=== PATIENT | female | born 1960 | race Caucasian/White ===

== ENCOUNTER 2023-12-22 08:42 | Emergency (ER) | payer OTHER, MEDICAID, SELFPAY ==
--- NOTE | 2023-12-22 09:29 | DI.RAD.S_ITS ---
PROCEDURE: XR FOOT RT MIN 3V INDICATIONS: injury TECHNIQUE: 3 views of the foot were acquired. COMPARISON: None. FINDINGS: Bones: No fractures or dislocations. No suspicious bony lesions. Soft tissues: No tibiotalar joint effusion. Achilles tendon appears normal. IMPRESSION: No visualized acute fracture or dislocation. However, if clinical concern and/or pain persist, short interval imaging followup in 7-10 days is recommended, as occult injury cannot be definitively excluded. Dictated by: Verónica Knight M.D. on 12/22/2023 at 10:40 Approved by: Verónica Knight M.D. on 12/22/2023 at 10:41
--- NOTE | 2023-12-22 09:29 | DI.RAD.S_ITS ---
PROCEDURE: XR ANKLE RT MIN 3V INDICATIONS: injury TECHNIQUE: 3 views of the ankle were acquired. COMPARISON: [facility], CR, XR FOOT RT MIN 3V, 12/22/2023, 9:30. FINDINGS: Bones: Questionable deformity anterior callus. Ankle mortise is normally aligned. No suspicious bony lesions. Soft tissues: No tibiotalar joint effusion. Achilles tendon appears normal. IMPRESSION: Questionable deformity of the anterior talus. Fracture cannot be excluded. Recommend correlation point tenderness as well as dedicated calcaneal views. Dictated by: Verónica Knight M.D. on 12/22/2023 at 10:42 Approved by: Verónica Knight M.D. on 12/22/2023 at 10:43
[2023-12-22 09:30] VITALS: BP 152/96; PULSE 101; RESP 16; TEMP 36.6; O2SAT 95; BMI 22.3
--- NOTE | 2023-12-22 11:34 | DI.RAD.S_ITS ---
PROCEDURE: XR CALCANEOUS RT MIN 2V INDICATIONS: injury, ?talus fx TECHNIQUE: Two views of the calcaneus were acquired. COMPARISON: None. FINDINGS: Bones: There is persistent slight irregularity of the anterior calcaneus. No height loss. Soft tissues: No suspicious calcifications. Achilles tendon appears normal. IMPRESSION: Persistent slight irregularity the anterior calcaneus. Cannot exclude nondisplaced fracture. Follow-up imaging in 7-10 days is recommended. Dictated by: Verónica Knight M.D. on 12/22/2023 at 12:49 Approved by: Verónica Knight M.D. on 12/22/2023 at 12:50
--- NOTE | 2023-12-22 12:17 | ED_ITS ---
HPI - Extremity Injury (Lower) <Leonardo Cortez PA-C - Last Filed: 12/22/23 15:45> General Chief Complaint: Extremity Injury, Lower Stated Complaint: twisted R ankle/foot Time Seen by Provider: 12/22/23 11:27 Source: patient Mode of arrival: EMS History of Present Illness HPI Narrative: 63-year-old female presents to the ED with 5 days of right foot pain. Patient states that she hit her foot against a concrete slab when her dog tag that the leash. Patient states that it has been swollen, painful, red. No numbness, tingling, weakness. Patient states that she is unable to bear weight and walk due to the pain. No fever, chills. Related Data Allergies Allergy/AdvReac Type Severity Reaction Status Date / Time Penicillins Allergy Hives Verified 12/22/23 09:33 aspirin AdvReac Heartburn Verified 12/22/23 09:33 codeine AdvReac Verified 12/22/23 09:33 Review of Systems <Leonardo Cortez PA-C - Last Filed: 12/22/23 15:45> Constitutional Constitutional: Denies chills, Denies fatigue, Denies fever(s), Denies frequent falls, Denies lethargy and Denies weakness Eyes Eyes: Denies change in vision, Denies eye discharge, Denies irritation and Denies loss of vision ENT Ears, Nose, Mouth, and Throat: Denies change in voice, Denies dizziness, Denies neck pain, Denies sore throat and Denies throat swelling Cardiovascular Cardiovascular: Denies chest pain, Denies irregular heart rhythm, Denies lightheadedness, Denies palpitations, Denies dyspnea, Denies dyspnea on exertion and Denies orthopnea Respiratory Respiratory: Denies cough, Denies dyspnea, Denies dyspnea on exertion and Denies wheezing Gastrointestinal Gastrointestinal: Denies abdominal pain, Denies change in bowel habits, Denies diarrhea, Denies nausea and Denies vomiting Musculoskeletal Musculoskeletal: Denies neck pain and Denies numbness Comments: Right foot swelling, pain, redness Integumentary/Breasts Skin/Breast: Denies pruritus, Denies erythema, Denies rash and Denies wounds Neurologic Neurologic: Denies behavioral changes, Denies confusion, Denies dizziness, Denies frequent falls, Denies loss of vision, Denies numbness and Denies weakness Psychiatric Psychiatric: Denies anxiety, Denies behavioral changes, Denies confusion, Denies depression, Denies homicidal ideation and Denies suicidal ideation Endocrine Endocrine: Denies fatigue, Denies flushing and Denies palpitations Hematologic/Lymphatic Hematologic/Lymphatic: Denies easy bruising Allergic/Immunologic Allergic/Immunologic: Denies urticaria, Denies throat swelling and Denies wheezing Patient History <Leonardo Cortez PA-C - Last Filed: 12/22/23 15:45> Social History Smoking Status: Current every day smoker Smoking Status: Current every day smoker alcohol intake frequency: holidays/special occasions only Substance Use Type: marijuana Exam <Leonardo Cortez PA-C - Last Filed: 12/22/23 15:45> Narrative Exam Narrative: Const General:?cooperative, healthy appearing and comfortable [facility] Head:?normal to inspection Ears:?hearing grossly normal bilaterally Nose:?external nose normal Face and sinus:?normal facial exam and sinuses nontender Mouth:?oral mucosae normal Throat:?posterior oropharynx normal Eyes General:?appearance normal, both eyes and all related structures Neck Neck:?normal visual inspection and no lymphadenopathy noted Resp Effort & Inspection:?normal respiratory effort Auscultation:?clear to auscultation bilaterally Cardio Rate:?regular rate Rhythm:?regular rhythm Musculoskeletal Erythema, swelling, exquisite tenderness to the top lateral aspect of the foot. Sensation is intact. Neurovascularly intact. Neuro General:?patient alert, patient awake and patient oriented x3 Initial Vital Signs Initial Vital Signs: Vital Signs Temperature 98 F 12/22/23 09:30 Pulse Rate 101 H 12/22/23 09:30 Respiratory Rate 16 12/22/23 09:30 Blood Pressure 152/96 H 12/22/23 09:30 Pulse Oximetry 95 12/22/23 09:30 Oxygen Delivery Method Room Air 12/22/23 09:30 <Emily Sommer MD - Last Filed: 12/23/23 07:12> Initial Vital Signs Initial Vital Signs: Vital Signs Temperature 98 F 12/22/23 09:30 Pulse Rate 101 H 12/22/23 09:30 Respiratory Rate 16 12/22/23 09:30 Blood Pressure 152/96 H 12/22/23 09:30 Pulse Oximetry 95 12/22/23 09:30 Oxygen Delivery Method Room Air 12/22/23 09:30 Course <Leonardo Cortez PA-C - Last Filed: 12/22/23 15:45> Orders Ordered: Discontinued Medications Ketorolac Tromethamine (Ketorolac 30 Mg/Ml Vial) 30 mg IM NOW ONE Stop: 12/22/23 12:12 Last Admin: 12/22/23 12:20 Dose: 30 mg Documented By: LLUVIA Vital Signs Vital signs: Vital Signs - 8 hr 12/22/23 09:30 Temperature 98 F Pulse Rate 101 H Respiratory Rate 16 Blood Pressure 152/96 H Pulse Oximetry 95 Oxygen Delivery Method Room Air <Emily Sommer MD - Last Filed: 12/23/23 07:12> Orders Ordered: Discontinued Medications Ketorolac Tromethamine (Ketorolac 30 Mg/Ml Vial) 30 mg IM NOW ONE Stop: 12/22/23 12:12 Last Admin: 12/22/23 12:20 Dose: 30 mg Documented By: LLUVIA Vital Signs Vital signs: Vital Signs - 8 hr 12/22/23 09:30 Temperature 98 F Pulse Rate 101 H Respiratory Rate 16 Blood Pressure 152/96 H Pulse Oximetry 95 Oxygen Delivery Method Room Air MDM - Extremity Injury (Lower) <Leonardo Cortez PA-C - Last Filed: 12/22/23 15:45> MDM Narrative Medical decision making narrative: 63-year-old female presents to the ED with 5 days of right foot pain. Patient states that she hit her foot against a concrete slab when her dog tag that the leash. Concern for fracture/dislocation versus musculoskeletal sprain/strain versus cellulitis versus other. Will obtain x-rays, give Toradol for pain. Will reassess. X-rays show a persistent slight irregularity of the anterior calcaneus/talus. CT was obtained for further characterization. CT negative for fracture/dislocation. A posterior ankle splint was applied while awaiting imaging and patient feels much relief from pain with it on. Patient discharged with splint for the next few days until symptoms improve. Recommend ortho follow-up if symptoms persist. ED return precautions discussed with patient. Patient verbalized understanding. Medical records reviewed: Yes Discharge Plan Departure Patient Disposition: Home Clinical Impression: Injury of foot, right Qualifiers: Encounter type: initial encounter Qualified Code(s): S99.921A - Unspecified injury of right foot, initial encounter Instructions: DI for Foot Pain Activity Restrictions/Additional Instructions: You were evaluated in the ED today for a foot injury. For the CT scan, you have a foot contusion but no fractures or dislocations. A splint has been applied to aid healing and you have been provided crutches to get around. You may take 800 mg of ibuprofen every 8 hours for pain as needed. Ibuprofen is available [id number] at drug stores. You may follow-up with [facility] at [phone] your symptoms persist. Return to the ED if you have worsening symptoms, numbness, tingling, weakness. Stand Alone Forms: Patient Portal/API ED Sign-out <Emily Sommer MD - Last Filed: 12/23/23 07:12> Cosign ED Attending Coscarlosature Attestation: I was immediately available in the department for consultation throughout this patient's visit. Emily Sommer MD
[2023-12-22] MEDS: KETOROLAC 30 MG/ML VIAL IM (12:20)
--- NOTE | 2023-12-22 14:08 | DI.CT.S_ITS ---
PROCEDURE: CT LE RT WO CON INDICATIONS: ?calcaneal fx Right TECHNIQUE: Noncontrast 1-1.5 mm axial sections acquired from above the tibiotalar joint to the bottom of the calcaneus, with coronal and sagittal reformats. COMPARISON: [facility], CR, XR ANKLE RT MIN 3V, 12/22/2023, 9:30. [facility], CR, XR FOOT RT MIN 3V, 12/22/2023, 9:30. [facility], CR, XR CALCANEOUS RT MIN 2V, 12/22/2023, 11:36. FINDINGS: Image quality: Excellent. Bones: Alignment of right ankle and foot is anatomic. No acute fracture or dislocation. [id number] midfoot and hindfoot joint osteoarthritic changes are seen more notably involving subtalar joint, talonavicular joint and 2nd TMT joint. No suspicious bony lesions. Soft tissues: There is mild soft tissue swelling over plantar aspect of right heel. The plantar fascia is grossly intact. The Achilles tendon is intact. No abnormal soft tissue calcifications. No calcified intra-articular loose bodies. No full-thickness extensor or flexor tendon rupture. IMPRESSION: 1. Suggestion of soft tissue contusion involving plantar aspect of right heel. No abnormal soft tissue calcifications. No drainable fluid collection. No calcified intra-articular loose bodies. No full-thickness tendon rupture. 2. No displaced calcaneal fracture or dislocation. 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 No suspicious intraosseous lesion. Dictated by: Dann Alves M.D. on 12/22/2023 at 15:06 Approved by: Dann Alves M.D. on 12/22/2023 at 15:12
== END 2023-12-22 15:29 | disposition home or self-care (01) ==
PROVIDERS: Emergency Provider Student in an Organized Health Care Education/Training Program
DX: S99.921A Unspecified injury of right foot, initial encounter (principal); W22.8XXA Striking against or struck by other objects, initial encounter
CPT/HCPCS: 29515; 73610; 73630; 73650; 73700; 96372; 99284; J1885